=== PATIENT | male | born 1945 | race Caucasian/White ===

== ENCOUNTER 2017-07-22 07:22 | Day surgery (SDC) | payer MEDICARE ==
[2017-07-21 15:46] VITALS: BMI 22.8
[2017-07-22] MEDS ORDERED: Oxymetazoline HCl 0.05% ( 15 ML ) ONE ×2 (08:25→09:41)
[2017-07-22 08:38] LABS: Hematocrit 52.3 % (42.0-52.0)
[2017-07-22 09:01] LABS: Anion Gap 14 mmol/L (10-20); BUN (Urea Nitrogen) 12 mg/dL (8.4-25.7); Calc. Creatinine Clearance 80 mL/min (70-130); Calcium 9.4 mg/dL (7.8-10.44); Carbon Dioxide 26 mmol/L (23-31); Chloride 98 mmol/L (98-107); Estimated GFR-MDRD 90
[2017-07-22] MEDS ORDERED: Lidocaine 1% w/Epinephrine 1:200K 30 ML VIAL ONE (09:40)
[2017-07-22] MEDS ORDERED: Bacitracin Zinc Ointment 30 gm TUBE ONE (09:41)
[2017-07-22] MEDS ORDERED: Fentanyl 100 MCG/2 ML VIAL ONE ×2 (09:46→10:46)
[2017-07-22] MEDS ORDERED: Dexamethasone 20 MG/5 ML VIAL ONE (10:04)
[2017-07-22] MEDS ORDERED: Ondansetron HCl/PF 4 MG/2 ML Vial ONE (10:04)
[2017-07-22] MEDS ORDERED: Propofol 200 MG/20 ML VIAL ONE (10:04)
[2017-07-22] MEDS ORDERED: Lidocaine 1% PF 5 ML VIAL ONE (10:04)
[2017-07-22] MEDS ORDERED: Promethazine HCl 25 MG/ML VIAL IM/IV PRN (11:03)
[2017-07-22] MEDS ORDERED: Ondansetron HCl/PF 4 MG/2 ML Vial IVP PRN (11:03)
[2017-07-22] MEDS ORDERED: Non-Formulary Medication 1 EACH PO PRN (11:03)
[2017-07-22] MEDS ORDERED: Hydrocodone-Acetamin 15 ML UDCUP ONE (11:38)
--- NOTE | 2017-07-22 16:30 | OP ---
DATE OF PROCEDURE: 07/22/2017 PREOPERATIVE DIAGNOSES: 1. Chronic rhinosinusitis. 2. Bilateral inferior turbinate hypertrophy. 3. Nasal obstruction. POSTOPERATIVE DIAGNOSES: 1. Chronic rhinosinusitis. 2. Bilateral inferior turbinate hypertrophy. 3. Nasal obstruction. PROCEDURES: 1. Bilateral endoscopic sinus surgery, total ethmoidectomies. 2. Bilateral endoscopic sinus surgery, maxillary antrostomies. 3. Bilateral endoscopic sinus surgery, frontal sinusotomy. 4. Bilateral inferior turbinate submucosal resection. SURGEON: Dr. Eduardo Burgess. ESTIMATED BLOOD LOSS: Less than 50 mL. COMPLICATIONS: None. ANESTHESIA: GETA. PROCEDURE: The patient was taken to the operating room, placed supine on the table. General endotr acheal anesthesia was obtained by the Anesthesia staff. Tube was secured into the left lower lip. The patient was placed in the beach chair position. Following this, the patient was prepped and jazmin ped for standard nasal procedure. The 0 degree scope was then advanced into the nasal cavity. 1% l idocaine with 1:100,000 epinephrine was injected into the inferior turbinates and middle turbinates and lateral nasal wall bilaterally. Following this, the middle turbinates were medialized with a Fr eer elevator. The uncinate process was then identified and was anteriorly fractured using the ball ended probe. The upbiting Blakesley forceps and the straight microdebrider were used to remove the uncinate process as well as identify the natural maxillary sinus ostia. This natural maxillary sinu s ostia was then gently widened using the microdebrider and straight Blakesley forceps bilaterally. Following this, the ethmoidal bulla was identified bilaterally and was punctured on its medial and inferior aspect with the microdebrider and was removed. The ground lamella was then identified and was punctured into the posterior ethmoidal cells. Working from posterior to anterior, ethmoidal [place] ls were opened in a mucosal-sparing technique. Following this, the 45 degree scope and the upbiting microdebrider was then used to further open the frontal recess and indentifying the frontal sinus o stia bilaterally which was gently widened anteriorly and medially with the microdebrider. Following this, the nasal cavity was irrigated. MeroPacks were placed within the middle meatus. The inferio r turbinates were then punctured on the anterior and inferior aspect with the submucosal microdebrid er and submucosal resection was performed of the anterior inferior portions of the inferior turbinat es bilaterally. The patient tolerated the procedure well.
--- NOTE | 2017-07-23 09:06 | EKG ---
Test Reason : PREOP Blood Pressure : / mmHG Vent. Rate : 072 BPM Atrial Rate : 072 BPM P-R Int : 158 ms QRS Dur : 144 ms QT Int : 436 ms P-R-T Axes : 039 -67 -16 degrees QTc Int : 477 ms Normal sinus rhythm Right bundle branch block Left anterior fascicular block Bifascicular block Abnormal ECG No previous ECGs available Confirmed by DMITRY CARY ([id number]) on 07/23/2017 9:05:51 AM Referred By: KELLI Confirmed By:DMITRY CARY
== END 2017-07-22 12:50 | disposition home or self-care (01) ==
LOC: SDC 07:22
PROVIDERS: ATTEND Otolaryngology Plastic Surgery within the Head & Neck
PROC: 099R4ZZ Drainage of Left Maxillary Sinus, Percutaneous Endoscopic Approach (ICD-10-PCS; principal; 2017-07-22)
PROC: 099Q4ZZ Drainage of Right Maxillary Sinus, Percutaneous Endoscopic Approach (ICD-10-PCS; 2017-07-22)
PROC: 09TL4ZZ Resection of Nasal Turbinate, Percutaneous Endoscopic Approach (ICD-10-PCS; 2017-07-22)
PROC: 09TV4ZZ Resection of Left Ethmoid Sinus, Percutaneous Endoscopic Approach (ICD-10-PCS; 2017-07-22)
PROC: 09TU4ZZ Resection of Right Ethmoid Sinus, Percutaneous Endoscopic Approach (ICD-10-PCS; 2017-07-22)
PROC: 09BT4ZZ Excision of Left Frontal Sinus, Percutaneous Endoscopic Approach (ICD-10-PCS; 2017-07-22)
PROC: 09BS4ZZ Excision of Right Frontal Sinus, Percutaneous Endoscopic Approach (ICD-10-PCS; 2017-07-22)
DX: J32.9 Chronic sinusitis, unspecified (principal); J34.3 Hypertrophy of nasal turbinates; I10 Essential (primary) hypertension; N40.0 Benign prostatic hyperplasia without lower urinary tract symptoms; J44.9 Chronic obstructive pulmonary disease, unspecified; Z79.899 Other long term (current) drug therapy; Z98.42 Cataract extraction status, left eye; Z98.41 Cataract extraction status, right eye
CPT/HCPCS: 36415; 80048; 85014; 85018; 93005; 93010; 96374; J1100; J2001; J2270; J2405; J2704; J3010